=== PATIENT | female | born 1945 | race Caucasian/White ===

== ENCOUNTER 2020-06-21 21:02 | Emergency (ER) | payer MEDICARE, SELFPAY ==
--- NOTE | ~2020-06-21 | CT_ITS ---
EXAMINATION: CT abdomen pelvis wo con DATE: 06/22/2020 01:22 INDICATION: Left flank pain. Kidney stone. TECHNIQUE: Computed tomography (CT) of the abdomen and pelvis was performed without intravenous contr ast. Automated exposure control and iterative reconstruction technique were employed. The dose-length product was 465.53 mGy-cm. COMPARISON: None. FINDINGS: The visualized portions of the lung bases demonstrate mild atelectasis. No pleural effusion . The heart size is normal. No pericardial effusion. There is a small sliding hiatal hernia. The live r, gallbladder, spleen, pancreas, adrenal glands, and right kidney are normal. There are is a 16 mm c yst in left kidney. There is mild left hydronephrosis. There is asymmetric edema around left kidney. There are calcified fibroids in the uterus. There is diverticulosis of the colon without evidence of diverticulitis. There are no dilated loops of bowel. The appendix is normal. There are no pathologica lly enlarged lymph nodes. There is no free intraperitoneal fluid. There is mild thoracolumbar spondyl osis. IMPRESSION: 1. Mild left hydronephrosis. No urolithiasis. 2. Small sliding hiatal hernia. Reviewed, dictated and finalized at location A.
[2020-06-21 21:38] VITALS: BP 108/77; PULSE 68; RESP 18; TEMP 36.4; O2SAT 98
[2020-06-21 22:10] LABS: Basophils Percent Auto 0.2 % (0.2-1.2); Eosinophils Percent Auto 0.2 % (0-4.4); Hemoglobin 14.2 g/dL (12.0-15.0); Immature Granulocyte Absolute 0.11 K/mm3 (0.00-0.031); Immature Granulocyte Percent A 0.7 % (0-0.5); Lymphocytes Absolute Auto 2.12 K/mm3 (0.9-3.2); Mean Corpuscular HGB Conc 32.3 g/dl (32-36); Mean Corpuscular Hemoglobin 29.2 pg (26-34); Mean Corpuscular Volume 90.5 fl (80-100); Mean Platelet Volume 9.7 fl (7.4-10.4); Monocytes Absolute Auto 1.3 K/mm3 (0.1-0.6); Monocytes Percent Auto 7.8 % (2.6-8.5); Neutrophils Absolute Auto 12.7 K/mm3 (1.3-6.7); Neutrophils Percent Auto 78.1 % (45.5-73.1); Platelet Count Result 259 k/mm3 (150-375); Red Blood Count 4.86 M/mm3 (4.2-5.4); Red Cell Distribution Width 13.7 % (11.5-14.5); White Blood Count 16.3 K/mm3 (4.5-10.0)
[2020-06-21 22:16] LABS: Add Urine Microscopic? YES; Appearance Urine Cloudy (Clear); Bacteria Urine Trace /hpf; Bilirubin Urine Negative (Negative); Blood Urine 2+ (Negative); Calcium Oxalate Crystals Urine Many /hpf; Color Urine Yellow (Yellow); Glucose Urine UA Negative (Negative); Ketones Urine Negative (Negative); Leukocyte Esterase Ur Trace LEU/UL (Negative); Mucus Urine Rare /lpf; Nitrate Urine Positive (Negative); Protein Urine Negative (Negative); Specific Grav Ur 1.025 (1.001-1.035); Squamous Epithelial Cell Urine Moderate /hpf (Few); Urobilinogen Urine Negative mg/dL (<2.0)
[2020-06-21 22:21] LABS: Anion Gap 6 mmol/L (8-16); Blood Urea Nitrogen 28 mg/dL (7-17); Calcium 9.6 mg/dL (8.4-10.2); Carbon Dioxide 28 mmol/L (22-30); Chloride 104 mmol/L (98-107); Estimated Glomerular Filt Rate > 60; Glucose 120 mg/dL (65-105); Potassium 3.9 mmol/L (3.4-5.0); Sodium 138 mmol/L (137-145)
[2020-06-22 00:35] VITALS: BP 163/71; PULSE 88; RESP 20; TEMP 37.1; O2SAT 100
[2020-06-22 01:12] LABS: Alanine Aminotransferase 18 U/L (4-35); Albumin Level 4.2 g/dL (3.5-5.1); Alkaline Phosphatase 72 U/L (38-126); Aspartate Amino Transferase 33 U/L (14-36); Bilirubin,Total 0.2 mg/dL (0.2-1.3)
--- NOTE | 2020-06-22 01:48 | ED.GENADULT ---
HPI - General Adult General Chief complaint: Back Pain/Injury Stated complaint: left flank pain Time Seen by Provider: 06/22/20 00:13 Source: patient, family and RN notes reviewed Mode of arrival: ambulatory Limitations: no limitations History of Present Illness HPI narrative: Patient is 74 years old white female came from home complaining of left flank pain started 12 hours prior to arrival to the emergency room, no subsequently the pain resolved, came back again 2-hour prior to arrival to the emergency room. Pain is sharp, no radiation, associated with nausea and vomiting twice today. Patient denies any fever, chills, headache, chest pain or shortness of breath. Patient also denies any urinary symptoms or history of kidney stone. Related Data Allergies Allergy/AdvReac Type Severity Reaction Status Date / Time No Known Allergies Allergy Unverified 08/20/11 11:23 Review of Systems Review of Systems: Narrative: CONSTITUTIONAL: Denies fever, chills, or sweats. EYES: Denies visual changes, redness, or discharge. ENT: Denies rhinorrhea, congestion, sore throat, or otalgia. CARDIOVASCULAR: Denies chest pain, palpitations, or edema. RESPIRATORY: Denies cough or dyspnea. GASTROINTESTINAL: Denies abdominal pain, nausea, vomiting, or diarrhea. GENITOURINARY: Denies dysuria or hematuria. SKIN: Denies rash or itching. MUSCULOSKELETAL: Denies back pain, joint pain, or myalgia. NEUROLOGIC: Denies headache, numbness, or weakness. PSYCHIATRIC: Denies anxiety or depression. Exam Narrative: Exam Narrative: General appearance: Well-developed, well-nourished Skin: Normal color Head: Normocephalic, nontraumatic Eyes: Clear conjunctiva ENT: Oropharynx normal, ears normal, nose normal Neck: Supple, nontender Chest and respiratory: Airway patent, no respiratory distress, no accessory muscle use Heart: Regular rate/rhythm Abdomen: Soft, mild to moderate tenderness left flank, no bruises, no rash or swelling, no organomegaly, quiet bowel sounds Vascular: Normal peripheral pulses, normal capillary refill. Neurologic: Alert and oriented ?3, Course Course Emergency Course: Stable, improving. Patient was offered to be admitted for IV antibiotic, declined, sister at the bedside, patient would like to try antibiotic at home and see how it goes if she started vomiting or if she started running fever she will be back to the emergency room immediately. History of hyperlipidemia. Patient is not diabetic and does not have any immune compromised condition at this time. Patient was able to keep fluid and crackers down prior to discharge. Patient received 1 L of normal saline, 1 g of Rocephin IV, 4 mg of morphine and 4 mg of Zofran IV prior to discharge Vital Signs Vital signs: Vital Signs Temperature 36.4 C 06/21/20 21:38 Pulse Rate 68 06/21/20 21:38 Respiratory Rate 18 06/21/20 21:38 Blood Pressure 108/77 06/21/20 21:38 Pulse Oximetry 98 06/21/20 21:38 Temperature 37.1 C 06/22/20 00:35 Pulse Rate 88 06/22/20 00:35 Respiratory Rate 20 06/22/20 00:35 Blood Pressure 163/71 H 06/22/20 00:35 Pulse Oximetry 100 06/22/20 00:35 Medical Decision Making MDM Narrative Medical decision making narrative: Patient presents with left flank pain. Kidney stone, pyelonephritis, my concern. Labs, CT abdomen and pelvis without contrast, IV fluid, IV morphine and Zofran ordered. Further plan to follow. Differential Diagnosis Differential Diagnosis: Pyelonephritis, kidney stone, musculoskeletal pain, pulmonary embolism Vital Signs Vital Signs: Vital Signs Temperature 36.4 C 06/21/20 21:38 Pulse Rate 68 06/21/20 21:38 Respiratory Rate 18
[2020-06-22] MEDS: MORPHINE SULFATE (*CRX) 4 MG/ML INJ IV PUSH (01:59)
[2020-06-22] MEDS: ONDANSETRON INJ 4 MG/2 ML VIAL IV PUSH (01:59)
[2020-06-22 02:27] VITALS: BP 103/60; PULSE 64; RESP 18; TEMP 36.8; O2SAT 100
== END 2020-06-22 02:38 | disposition home or self-care (01) ==
PROVIDERS: Emergency Medicine; Emergency Provider Emergency Medicine; PCP Internal Medicine
DX: N10 Acute pyelonephritis (principal)
CPT/HCPCS: 36415; 74176; 80048; 80076; 81001; 85025; 87077; 87086; 87088; 87186; 96365; 96375; 99284; J0696; J2270; J2405